=== PATIENT | female | born 1995 ===

== ENCOUNTER 2017-11-30 10:54 | Emergency (ER) | payer SELFPAY ==
[2017-11-30 11:14] VITALS: BP 113/61
[2017-11-30 12:06] LABS: Basophils # (Auto) 0.1 K/mm3 (0.0-0.1); Basophils % (Auto) 0.6 % (0.0-1.8); Eosinophils % (Auto) 0.2 % (0.0-4.3); Hemoglobin 11.3 gm/dl (10.1-14.3); Lymphocytes # (Auto) 2.4 K/mm3 (1.2-5.4); Lymphocytes % (Auto) 21.9 % (13.4-35.0); Mean Corpuscular HGB Conc 31 % (30-34); Mean Corpuscular Volume 80 fl (79-97); Monocytes % (Auto) 9.6 % (0.0-7.3); Platelet Count 423 K/mm3 (140-440); Red Blood Count 4.52 M/mm3 (3.65-5.03); Red Cell Distribution Width 16.8 % (13.2-15.2)
[2017-11-30 12:07] LABS: Mean Corpuscular Hemoglobin 25 pg (28-32)
[2017-11-30 12:14] LABS: BUN/Creatinine Ratio 27; Blood Urea Nitrogen 16 mg/dL (7-17); Calcium 9.2 mg/dL (8.4-10.2); Hemolysis Index 26
--- NOTE | 2017-11-30 12:40 | XRay Report ---
ROUTINE CHEST, TWO VIEWS: HISTORY: Shortness of breath. The trachea, heart, mediastinal contour, lung munguia and bony thorax are unremarkable. IMPRESSION: Unremarkable chest x-ray.
== END 2017-11-30 11:36 | disposition left against medical advice (07) ==
LOC: ED 10:54
DX: Z53.21 Procedure and treatment not carried out due to patient leaving prior to being seen by health care provider (principal)
CPT/HCPCS: 36415; 71046; 80048; 85025; 93005; 93010